=== PATIENT | female | born 1955 | race Caucasian/White ===

== ENCOUNTER → 2022-02-21 07:28 | Outpatient (REF) | payer OTHER, SELFPAY ==
--- NOTE | 2022-02-21 07:37 | CA_ITS ---
Transthoracic Echocardiogram Patient (Last, First, Middle): Bonnie Peres, Gender: Female Date of : 1955 Age: 66 Procedure Date: 02/21/2022 Procedure Type: Transthoracic Echocardiogram Location: [facility] Height: 149.86 cm Weight: 70.31 kg BSA: 1.65 m2 Heart Rate: bpm BP: 118 / 80 mmHg Roll Trucker: JOHN Cordoba MD: Cecilia Alicia MD Drug Safety Scientist: Juan Morgan MD Symptoms: R53.83 FATIGUE Study Quality: Fair ECG Rhythm: Sinus Conclusions: - 1. Normal LV systolic function with grade 1 diastolic dysfunction 2. Mild aortic regurgitation 3. Normal RV systolic pressure 4. No pericardial effusion Findings Left Ventricle Normal left ventricular size, thickness, and systolic function. The visually estimated ejection fraction is between 60-65%. Spectral Doppler is indicative of an impaired relaxation filling pattern. E/E prime ratio is <8, consistent with normal filling pressures. Evidence suggests grade I (mild) diastolic dysfunction. Right Ventricle Normal right ventricular cavity size and systolic function. Atria The left atrium is normal in size. There is no evidence of interatrial shunt. The right atrium is normal in size. Aortic Valve There is mild calcification of the aortic valve. There is no aortic valve stenosis. There is mild aortic valve regurgitation. Mitral Valve There is mild anterior and posterior mitral leaflet thickening. There is trace mitral valve regurgitation. There is no mitral valve stenosis. Pulmonic Valve The pulmonic valve was not well visualized. Tricuspid Valve Likely normal tricuspid valve structure and function. There is trace tricuspid valve regurgitation. The right ventricular systolic pressure is normal. The right ventricular systolic pressure is 13 mmHg. Normal right atrial pressure. There is no evidence of pulmonary hypertension. Great Vessels All visible segments of the aorta are normal in size. The pulmonary artery was not well visualized. Venous The inferior vena cava is normal in size and collapses greater than 50% with inspiration. Pericardium/Pleural There is no evidence of pericardial effusion. Prior Study Comparison No prior study available for comparison. Measurements 2D Linear Measurements IVSd: 1.08 0.6-0.9/0.6-1.0 cm LVIDd: 4.22 3.9-5.3/4.2-5.9 cm LVIDd Index: 2.56 2.4-3.2/2.2-3.1 cm/m2 LVIDs: 2.87 2.0-3.6 cm LVPWd: 0.89 0.7-1.1 cm LA Diam: 3.00 2.7-3.8/3.0-4.0 cm LAIDs Index: 1.82 1.5-2.3 cm/m2 LV Mass: 168.51 67-162/88-224 g LV Mass Index: 102.12 43-95/49-115 g/m2 LVOT Diam: 2.00 3.0+(-)1.3 cm 2D Systolic Function EF 4C: 67.60 >55% EF 2C: 63.80 >55% Mitral Valve E'Lateral: 5.00 E'Medial: 5.87 Aortic Valve AoV Pk Je: 1.36 AoV Mn Je: 0.95 AoV VTI: 0.25 AoV Pk Grad: 7.00 Aov Mn Grad: 4.00 CLARA Cont.VTI: 2.27 LVOT LVOT Pk Je: 0.90 LVOT Mn Je: 0.58 LVOT VTI: 0.18 LVOT Pk Grad: 3.00 LVOT Mn Grad: 2.00 LVOT Diam: 2.00 LVOT Area: 3.14 Diastolic Function E'Medial: 5.87 E' Laterial: 5.00 Right Ventricle TAPSE (mm): 23.60 TVS' Je: 16.20 Tricuspid Valve TR Pk Je: 1.56 TR Pk Grad: 10.00 RA Press: 3.00 RVSP: 13.00 Great Vessels Aorta Sinus of Valsalva: 3.01 2.0-3.[address] Ridge: 2.97 1.7-3.4 cm Ao Asc: 3.30 2.1-3.4 cm Ao Arch: 2.30 Updated in Other Vendor System with Status of Final Juan Morgan MD electronically signed on 02/23/2022 1:11:37 PM with status of Final
== END ==
LOC: HO.CARD 07:28
PROVIDERS: Visit Provider Family Medicine
DX: R53.83 Other fatigue (principal)
CPT/HCPCS: 93306